=== PATIENT | female | born 1935 | race Caucasian/White ===

== ENCOUNTER 2017-01-10 17:43 | Emergency (ER) | payer MEDICARE ==
[~2017-01-10 17:43] MED LIST: AMLO5TAB22 PO; ASPI81 PO; ATEN50 PO; CLOP75 PO; FENO50TA PO; ISOS60 PO; LEVE500 PO; LISI-363 PO; MAGN400T19 PO; RANI150 PO; SIMV40TA PO; [UNRECOGNIZED DRUG - CODE] PO
[2017-01-10 17:53] VITALS: BP 174/78; PULSE 82; RESP 17; TEMP 98
[2017-01-10 18:09] VITALS: BP 170/72; PULSE 72; RESP 16; O2SAT 98
[2017-01-10] MEDS ORDERED: SODIUM CHLOR 0.9% 1000 ML INJ 1,000 ML IV ONE (18:28)
[2017-01-10] MEDS ORDERED: SODIUM CHLORIDE 0.9% FLUSH 10 ML FLUSH IVF PRN (18:30)
[2017-01-10 18:36] VITALS: BP_SYST 128; BP_SYST 143; BP_DIAS 61; BP_DIAS 64; RESP 16; RESP 18
[2017-01-10 18:47] VITALS: BP 162/72; PULSE 73; RESP 16; O2SAT 100
--- NOTE | 2017-01-10 18:48 | PD ---
HPI Chief Complaint: Cardiac Complaint Time Seen by Provider: 18:08 Travel History International Travel<30 days: No Contact w/Intl Traveler<30days: No Traveled to known affect area: No History of Present Illness HPI The patient is a 81-year-old female who presents to the emergency department for 2-3 weeks of dizziness and lightheadedness. The patient states her last 2-3 weeks she has had a few intermittent episodes of lightheadedness and dizziness, worse with standing upright and worse after taken her medications. The patient states she got up this morning and took her medications at approximately 8:30 AM including isosorbide, amlodipine, and lisinopril. The patient then developed dizziness upon standing upright with a near syncopal episode at approximately 9:30 AM. Patient states she fell to her knees, but did not lose consciousness. The patient sat there for several minutes prior to getting up and going to the chair which she took her blood pressure. When the patient took her blood pressure she states her systolic was 80 and diastolic was in the 40s. The patient does have a history of hypertension and coronary artery disease, has previous CABG and stent placement. The patient was being followed by her scrub wheel operator, Dr. Guzmán, who recently retired. She is currently looking for a new scrub wheel operator. The patient 's primary physician is Dr. Ankit Sharma. The patient also complains of some left- sided chest pressure for the last 3 days which is intermittent, nonradiating, occasionally associated with shortness of breath. She denies any exertional shortness of breath. The patient last had stents placed in 2011, states she had a cardiac catheterization in 2013 with no other stents placed. She denies any exertional shortness of breath. The patient is unsure for chest pressure is related to previous swelling to the left chest after lumpectomy and lymph node dissection for which she undergoes physical therapy. PFSH Past Medical History Hx Anticoagulant Therapy: Yes Cardiac Catheterization: Yes Cardiovascular Problems: Yes High Cholesterol: Yes Chest Pain: Yes Congestive Heart Failure: No Coronary Artery Disease: Yes Hypertension: Yes Neurologic: Yes Immunizations Current: Yes Influenza Vaccination: Yes ?: Not Past Surgical History Abdominal Surgery: Yes (SMALL INTESTINE RESECTION ) Appendectomy: Yes Cardiac Surgery: Yes (cabg 1998) Cholecystectomy: Yes Coronary Artery Bypass Graft: Yes (1998, 4 STENTS) Coronary Stent: Yes Genitourinary Surgery: Yes (hysterectomy) Hysterectomy: Yes Other Surgery: Yes (LEFT BREAST LUMPECTOMY) Social History Alcohol Use: No Tobacco Use: No Substance Use: No Allergies-Medications (Allergen,Severity, Reaction): Coded Allergies: Codeine (Verified Allergy, Severe, Itching, 01/10/17) Penicillin (Verified Allergy, Severe, SOB, 01/10/17) Reported Meds & Prescriptions Reported Meds & Active Scripts Active Keppra (Levetriacetam) 500 Mg Tab 500 Mg PO Q12 30 Days Reported Amlodipine Besylate 5 mg (Amlodipine Besylate) 5 Mg Tab 1 Tab PO DAILY Zantac (Ranitidine HCl) 150 Mg Tab 150 Mg PO BID Lisinopril 20 mg (Lisinopril) 20 Mg Tab 20 Mg PO DAILY Magnesium Oxide (Magnesium Oxide (mg Supplement)) 400 Mg Tab 400 Mg PO BID Fish Oil Burp-Less ([place]-3 Fatty Acids) 1,000 Mg Cap 1,000 Mg PO DAILY Tricor (Fenofibrate) 145 Mg Tab 145 Mg PO DAILY Imdur 60 Mg (Isosorbide Mononitrate) 60 Mg Tabcr 60 Mg PO HS Aspirin 81 Mg Tab 81 Mg PO DAILY Simvastatin 40 Mg Tab 20 Mg PO HS Plavix (Clopidogrel Bisulfate) 75 Mg Tab 75 Mg PO DAILY Tenormin 50 Mg Tab (Atenolol) 50 Mg Tab 100 Mg PO DAILY Review of Systems Except as stated in HPI: all other systems reviewed are Neg HENT: Positive: Lightheadedness Cardiovascular: Positive: Chest Pain or Discomfort, No: Diaphoresis, Dyspnea on exertion Respiratory: Positive: Shortness of Breath Gastrointestinal: No: Nausea, Vomiting, Abdominal Pain Musculoskeletal: Positive: Weakness, No: Edema Neurologic: Positive: Dizziness, No: Headache, Change in Mentation Physical Exam Narrative GENERAL: Awake, alert, pleasant 81-year-old female who appears her stated age and is in no acute respiratory distress. SKIN: Focused skin assessment warm/dry. HEAD: Atraumatic. Normocephalic. EYES: Pupils equal and round. No scleral icterus. No injection or drainage. ENT: No nasal bleeding or discharge. Mucous membranes pink and moist. NECK: Trachea midline. No JVD. CARDIOVASCULAR: Regular rate and rhythm. No murmur appreciated. Heart rate in the 70s. Well-healed midline surgical scar. Tenderness along the left sternal border which causes pain but does not reproduce the pressure. RESPIRATORY: No accessory muscle use. Clear to auscultation. Breath sounds equal bilaterally. GASTROINTESTINAL: Abdomen soft, non-tender, nondistended. No rebound tenderness. MUSCULOSKELETAL: No obvious deformities. No clubbing. No cyanosis. No edema. NEUROLOGICAL: Awake and alert. No obvious cranial nerve deficits. Motor grossly within normal limits. Normal speech. PSYCHIATRIC: Appropriate mood and affect; insight and judgment normal. Data Data Last Documented VS Vital Signs Date Time Temp Pulse Resp B/P Pulse Ox O2 Delivery O2 Flow Rate FiO2 01/10/17 18:36 76 16 143/64 80 18 128/61 01/10/17 18:09 98 Room Air 01/10/17 17:53 98.0 Orders Electrocardiogram (01/10/17 18:28) Complete Blood Count With Diff (01/10/17 18:28) Comprehensive Metabolic Panel (01/10/17 18:28) Magnesium (Mg) (01/10/17 18:28) Troponin I (01/10/17 18:28) Act Partial Throm Time (Ptt) (01/10/17 18:28) Prothrombin Time / Inr (Pt) (01/10/17 18:28) Chest, Single Ap (01/10/17 18:28) Ct Brain W/O Iv Contrast(Rout) (01/10/17 18:28) Ecg Monitoring (01/10/17 18:28) Iv Access Insert/Monitor (01/10/17 18:28) Oximetry (01/10/17 18:28) Sodium Chloride 0.9% Flush (Ns Flush) (01/10/17 18:30) Sodium Chlor 0.9% 1000 Ml Inj (Ns 1000 M (01/10/17 18:28) Orthostatic Vital Signs (01/10/17 18:28) MDM Medical Decision Making Medical Screen Exam Complete: Yes Emergency Medical Condition: Yes Medical Record Reviewed: Yes Interpretation(s) EKG reveals normal sinus rhythm with a rate of 72. Q wave noted in lead 3 with inverted T waves. Differential Diagnosis Differential diagnosis includes orthostatic hypotension, medication side effect , vasovagal syncope, neurogenic syncope, dehydration, electrolyte abnormality, acute coronary syndrome. Narrative Course IV was established, labs are drawn and sent, and the patient was placed on cardiac telemetry monitoring and continuous pulse oximetry monitoring. EKG was ordered and interpreted. Orthostatic vital signs were obtained, the patient did have a 20-30 point drop with standing upright with symptoms. Therefore, the patient was administered 500 cc of normal saline. CT the brain was obtained. The patient will be signed out to the oncoming physician, Dr. Hernandez, at 7 PM. Diagnosis Primary Impression: Near syncope Condition: Stable Luis Enrique Lucas MD Jan 10, 2017 18:48
--- NOTE | 2017-01-10 19:03 | RADRPT ---
EXAM DATE/TIME: 01/10/2017 18:52 [facility] COMPARISON: CT BRAIN W/O CONTRAST, September 23, 2014, 22:56. INDICATIONS : Dizziness. RADIATION DOSE: 30.14 CTDIvol (mGy) MEDICAL HISTORY : Carcinoma, breast. Cardiovascular disease Hypertension. SURGICAL HISTORY : CABG ENCOUNTER: Initial ACUITY: 1 day PAIN SCALE: 0/10 LOCATION: cranial TECHNIQUE: Multiple contiguous axial images were obtained of the head. Using automated exposure control and adj ustment of the mA and/or kV according to patient size, radiation dose was kept as low as reasonably a chievable to obtain optimal diagnostic quality images. DICOM format image data is available electro nically for review and comparison. FINDINGS: CEREBRUM: The ventricles are normal for age. No evidence of midline shift, mass lesion, hemorrhage or acute in farction. No extra-axial fluid collections are seen. POSTERIOR FOSSA: The cerebellum and brainstem are intact. The 4th ventricle is midline. The cerebellopontine angle i s unremarkable. EXTRACRANIAL: The visualized portion of the orbits is intact. SKULL: The calvaria is intact. No evidence of skull fracture. CONCLUSION: Normal examination for a patient of this age. No significant change has occurred. Rei Ramos MD on January 10, 2017 at 19:00 Board Certified Radiologist. This report was verified electronically.
--- NOTE | 2017-01-10 19:05 | RADRPT ---
EXAM DATE/TIME: 01/10/2017 18:32 [facility] COMPARISON: CHEST SINGLE AP, September 23, 2014, 22:37. INDICATIONS : Dizziness and lightheaded. Discomfort in chest. Shortness of breath. MEDICAL HISTORY : None. SURGICAL HISTORY : CABG. ENCOUNTER: Initial ACUITY: 3 weeks PAIN SCORE: 3/10 LOCATION: Bilateral chest FINDINGS: A single view of the chest demonstrates postoperative CABG. Tortuous aorta. No effusion. No pneumotho rax. CONCLUSION: 1. Postoperative CABG. No acute findings. Rei Ramos MD on January 10, 2017 at 19:03 Board Certified Radiologist. This report was verified electronically.
[2017-01-10 19:28] LABS: AUTOMATED NEUTROPHIL # 3.8 TH/MM3 (1.8-7.7); BASOPHIL # 0.1 TH/MM3 (0-0.2); BASOPHIL % 0.8 % (0.0-2.0); EOSINOPHIL # 0.1 TH/MM3 (0-0.4); HEMATOCRIT 34.1 % (35.0-46.0); HEMO FLAGS DIFF FINAL; LYMPH % 34.2 % (9.0-44.0); LYMPHOCYTE # 2.3 TH/MM3 (1.0-4.8); MEAN CELL VOLUME 90.2 FL (80.0-100.0); MEAN CORPUSCULAR HEMOGLOBIN 30.4 PG (27.0-34.0); MEAN CORPUSCULAR HGB CONC 33.7 % (32.0-36.0); MONO % 7.5 % (0.0-8.0); NEUT % 55.5 % (16.0-70.0); PLATELET COUNT 257 TH/MM3 (150-450); RED BLOOD COUNT 3.78 MIL/MM3 (4.00-5.30); WHITE BLOOD COUNT 6.9 TH/MM3 (4.0-11.0)
[2017-01-10 19:32] LABS: APTT (PATIENT) 23.6 SEC (24.3-30.1); INTERNATIONAL NORMALIZED RATIO 1.1 RATIO; PROTHROMBIN TIME - PATIENT 11.7 SEC (9.8-11.6)
[2017-01-10 19:39] LABS: ALT (GPT) 20 U/L (10-53); ANION GAP 9 MEQ/L (5-15); AST (GOT) 24 U/L (15-37); BICARBONATE 25.4 MEQ/L (21.0-32.0); BLOOD UREA NITROGEN 33 MG/DL (7-18); CHLORIDE 106 MEQ/L (98-107); GLOMERULAR FILTRATION RATE 35 ML/MIN (>89); MAGNESIUM 1.4 MG/DL (1.5-2.5); POTASSIUM 4.3 MEQ/L (3.5-5.1); SODIUM (NA) 140 MEQ/L (136-145)
[2017-01-10 19:44] VITALS: BP 189/82; PULSE 69; RESP 15; O2SAT 100
[2017-01-10 19:44] LABS: ALKALINE PHOSPHATASE 44 U/L (45-117); TOTAL BILIRUBIN ADULT 0.6 MG/DL (0.2-1.0)
[2017-01-10] MEDS ORDERED: ASPI1TAB91 PO (19:47)
[2017-01-10] MEDS ORDERED: FENO50TA PO (19:47)
[2017-01-10] MEDS ORDERED: MAG-84TA PO (19:47)
[2017-01-10] MEDS ORDERED: LISI-515 PO (19:47)
[2017-01-10] MEDS ORDERED: HYDR-3533 PO (19:47)
[2017-01-10] MEDS ORDERED: AMLO5TAB2 PO (19:47)
[2017-01-10] MEDS ORDERED: [UNRECOGNIZED DRUG - CODE] PO (19:47)
[2017-01-10] MEDS ORDERED: LORA-392 PO (19:47)
[2017-01-10] MEDS ORDERED: PLAV75TA29 PO (19:47)
[2017-01-10] MEDS ORDERED: ISOS60TA PO (19:47)
--- NOTE | 2017-01-10 20:52 | PD ---
Data Data Last Documented VS Vital Signs Date Time Temp Pulse Resp B/P Pulse Ox O2 Delivery O2 Flow Rate FiO2 01/10/17 21:12 71 16 192/78 72 183/82 75 199/80 01/10/17 19:44 100 Room Air 01/10/17 17:53 98.0 Orders Electrocardiogram (01/10/17 18:28) Complete Blood Count With Diff (01/10/17 18:28) Comprehensive Metabolic Panel (01/10/17 18:28) Magnesium (Mg) (01/10/17 18:28) Troponin I (01/10/17 18:28) Act Partial Throm Time (Ptt) (01/10/17 18:28) Prothrombin Time / Inr (Pt) (01/10/17 18:28) Chest, Single Ap (01/10/17 18:28) Ct Brain W/O Iv Contrast(Rout) (01/10/17 18:28) Ecg Monitoring (01/10/17 18:28) Iv Access Insert/Monitor (01/10/17 18:28) Oximetry (01/10/17 18:28) Sodium Chloride 0.9% Flush (Ns Flush) (01/10/17 18:30) Sodium Chlor 0.9% 1000 Ml Inj (Ns 1000 M (01/10/17 18:28) Orthostatic Vital Signs (01/10/17 18:28) Orthostatic Vital Signs (01/10/17 20:24) Troponin I (01/10/17 20:24) Labs Laboratory Tests Test 01/10/17 01/10/17 18:40 20:30 White Blood Count 6.9 TH/MM3 Red Blood Count 3.78 MIL/MM3 Hemoglobin 11.5 GM/DL Hematocrit 34.1 % Mean Corpuscular Volume 90.2 FL Mean Corpuscular Hemoglobin 30.4 PG Mean Corpuscular Hemoglobin 33.7 % Concent Red Cell Distribution Width 14.0 % Platelet Count 257 TH/MM3 Mean Platelet Volume 7.8 FL Neutrophils (%) (Auto) 55.5 % Lymphocytes (%) (Auto) 34.2 % Monocytes (%) (Auto) 7.5 % Eosinophils (%) (Auto) 2.0 % Basophils (%) (Auto) 0.8 % Neutrophils # (Auto) 3.8 TH/MM3 Lymphocytes # (Auto) 2.3 TH/MM3 Monocytes # (Auto) 0.5 TH/MM3 Eosinophils # (Auto) 0.1 TH/MM3 Basophils # (Auto) 0.1 TH/MM3 CBC Comment DIFF FINAL Differential Comment Prothrombin Time 11.7 SEC Prothromb Time International 1.1 RATIO Ratio Activated Partial 23.6 SEC Thromboplast Time Sodium Level 140 MEQ/L Potassium Level 4.3 MEQ/L Chloride Level 106 MEQ/L Carbon Dioxide Level 25.4 MEQ/L Anion Gap 9 MEQ/L Blood Urea Nitrogen 33 MG/DL Creatinine 1.46 MG/DL Estimat Glomerular Filtration 35 ML/MIN Rate Random Glucose 86 MG/DL Calcium Level 9.4 MG/DL Magnesium Level 1.4 MG/DL Total Bilirubin 0.6 MG/DL Aspartate Amino Transf 24 U/L (AST/SGOT) Alanine Aminotransferase 20 U/L (ALT/SGPT) Alkaline Phosphatase 44 U/L Troponin I LESS THAN 0.02 LESS THAN 0.02 NG/ML NG/ML Total Protein 6.7 GM/DL Albumin 3.7 GM/DL [facility] Medical Record Reviewed: Yes Supervised Visit with AI: No Narrative Course CBC & BMP Diagram 01/10/17 18:40 Troponin is less than 0.02 LFTs are normal Magnesium 1.4 INR 1.1 EKG reveals a sinus rhythm with normal axis and intervals and no ischemic injury pattern or preexcitation type pattern Patient was reassessed at 2030 was found resting comfortably. Orthostatic vital signs done at about the same time showed essentially no change in the mean arterial pressure with supine sitting and standing and the pulse change was also marginal. Relative hypertension in the ER at time of orthostatics evaluation noted. Pt is due for her evening Norvasc dose which will be taken at home. Patient has good follow-up with Dr. Palacios. The nature of the patient's chest complaints is somewhat indeterminate. The delta troponin is undetectable and follow up with cardiology as an outpatient is considered reasonable. The near-syncope type event this morning could be related to a prior ingestion of antihypertensives. Diagnosis Primary Impression: Hypomagnesemia Additional Impressions: Near syncope Orthostatic hypotension Referrals: Ankit Palacios MD 2 days Additional Instruction: PLEASE SKIP YOUR MORNING HIGH BLOOD PRESSURE MEDICATION UNLESS YOUR BLOOD PRESSURE IS GREATER THAN 160 ON THE TOP NUMBER OR 100 ON THE BOTTOM NUMBER. BE SURE TO SEE DR PALACIOS EARLY NEXT WEEK. PLEASE BE SURE TO RETURN TO THE ER RIGHT AWAY IF YOU DEVELOP NEW OR WORSENING CHEST PAIN OR SHORTNESS OF BREATH. Med/Other Pt SpecificInfo: Existing Med Changed Disposition: 01 DISCHARGE HOME Condition: Stable Kash Hernandez MD Jan 10, 2017 20:52
[2017-01-10 21:12] VITALS: BP_SYST 183; BP_SYST 192; BP_SYST 199; BP_DIAS 78; BP_DIAS 80; BP_DIAS 82; RESP 16
--- NOTE | 2017-01-11 17:27 | EKG ---
Date Performed: 01/10/2017 Time Performed: 18:30:29 PTAGE: 81 years EKG: Sinus rhythm NORMAL ECG Since PREVIOUS TRACING , no significant change noted PREVIOUS TRACIN09/23/2014 22.10 DOCTOR: Chilo Severino Interpretating Date/Time 01/11/2017 17:26:35
== END 2017-01-10 22:15 | disposition home or self-care (01) ==
LOC: NEPC 17:43
DX: E83.42 Hypomagnesemia (principal); R55 Syncope and collapse; R42 Dizziness and giddiness; R06.02 Shortness of breath; R53.1 Weakness; I95.1 Orthostatic hypotension; I10 Essential (primary) hypertension; I25.10 Atherosclerotic heart disease of native coronary artery without angina pectoris; E78.00 Pure hypercholesterolemia, unspecified
CPT/HCPCS: 70450; 71010; 80053; 83735; 84484; 85025; 85610; 85730; 93005; 99285; J7030

== ENCOUNTER 2018-04-22 10:05 | Inpatient (IN) ==
--- NOTE | 2018-04-22 10:58 | XR ---
EXAM DATE: 04/22/2018 10:54 AM EST AGE/SEX: 82 years / Female INDICATIONS: Evaluate for pneumonia,pneumothorax or communicable disease. CLINICAL DATA: This is the patient's subsequent encounter. Patient reports that signs and symptoms h ave been present for 1 day and indicates a pain score of 0/10. MEDICAL/SURGICAL HISTORY: Carcinoma, breast. Arthritis. Hypertension. TIA. Hypokalemia. Hypo magngnesemia. CABG. Cardiac stents. Left lumpectomy. Right carotid endarterectomy. COMPARISON: [facility] – [place], CHEST SINGLE AP, 01/10/2017. . FINDINGS: A single AP view of the chest demonstrates the lungs to be symmetrically aerated without evidence of mass, infiltrate or effusion. The cardiomediastinal contours are unremarkable. Degenerative changes are noted throughout the thoracolumbar spine. CONCLUSION: 1. No acute cardiopulmonary disease. 2. Degenerative changes are noted throughout the thoracolumbar spine. Electronically signed by: Virgilio Valero MD 04/22/2018 10:57 AM EST
[2018-04-22] MEDS ORDERED: Metoprolol Tartrate 25 MG Tablet PO ONE (11:00)
[2018-04-22] MEDS ORDERED: Sodium Chlor 0.9% Inj 500 ML IV.CONT ONE (11:00)
[2018-04-22] MEDS ORDERED: Chlorhexidine Gluconate 2% 1 Pack (2 Cloths) TOPICAL ONE (11:00)
--- NOTE | 2018-04-22 11:04 | P.HPUP ---
The Pre-Admit History and Physical Examination regarding the above named patient was reviewed (including, but not limited to, vital signs, heart, lungs, co-morbid conditions), and upon re-examination it is noted that: the patient's condition has not significantly changed since the last examination.
[2018-04-22 11:05] LABS: Baso # (Auto) 0.1 th/mm3 (0.0-0.2); Baso % (Auto) 0.6 % (0.0-2.0); Eos # (Auto) 0.1 th/mm3 (0.0-0.4); Eos % (Auto) 0.8 % (0.0-4.0); Hematocrit 38.9 % (35.0-46.0); Hemoglobin 13.2 gm/dL (11.6-15.3); Lymph % (Auto) 22.9 % (9.0-44.0); Mean Corpuscular HGB Conc 33.9 % (32.0-36.0); Mean Corpuscular Hemoglobin 30.9 pg (27.0-34.0); Mean Corpuscular Volume 91.1 fL (80.0-100.0); Mean Platelet Volume 7.8 fL (7.0-11.0); Mono # (Auto) 0.4 th/mm3 (0.0-0.9); Mono % (Auto) 4.8 % (0.0-8.0); Neut # (Auto) 6.3 th/mm3 (1.8-7.7); Neut % (Auto) 70.9 % (16.0-70.0); Platelet Count 252 th/mm3 (150-450); Red Blood Count 4.27 mil/mm3 (4.00-5.30); Red Cell Distribution Width 13.1 % (11.6-17.2); White Blood Count 8.9 th/mm3 (4.0-11.0)
[2018-04-22 11:17] LABS: Prothrombin Time 9.9 sec (9.8-11.6)
[2018-04-22 11:23] LABS: Potassium 3.9 meq/L (3.5-5.1)
[2018-04-22] MEDS ORDERED: Gelatin Size 100 Topical Foam ONE (11:25)
[2018-04-22] MEDS ORDERED: Heparin 10,000 UNITS/10 ML Vial (for IV use) ONE (11:25)
[2018-04-22] MEDS ORDERED: Protamine Sulfate Inj 50 MG/5 ML Vial ONE (11:25)
[2018-04-22] MEDS ORDERED: Thrombin Topical 20,000 UNIT Spray Kit TOPICAL ONE (11:26)
[2018-04-22] MEDS ORDERED: Heparin/NS PF Inj 500 ML ONE (11:26)
[2018-04-22] MEDS ORDERED: Phenylephrine/NS 1000 MCG/10ML Syringe IV.PUSH ONE (11:47)
[2018-04-22] MEDS ORDERED: Normosol-R pH 7.4 Inj 1,000 ML IV.CONT ONE (11:47)
[2018-04-22] MEDS ORDERED: Glycopyrrolate Inj 1 MG/5 ML Syringe IV.PUSH ONE (11:47)
[2018-04-22] MEDS ORDERED: Lidocaine PF 1% Inj 5 ML Syringe OTHER ONE (11:47)
[2018-04-22] MEDS ORDERED: Labetalol HCl Inj 100 MG/20 ML Vial IV.CONT ONE (11:47)
[2018-04-22] MEDS ORDERED: Neostigmine Inj 5 MG/5 ML Syringe IV.PUSH ONE (11:47)
[2018-04-22] MEDS ORDERED: Bisacodyl 10 MG Supp RECTAL PRN (13:52)
[2018-04-22] MEDS ORDERED: Morphine Inj 4 MG/ML Vial IV.PUSH PRN (13:52)
--- NOTE | 2018-04-22 13:52 | P.OP ---
Preoperative Diagnosis: Symptomatic left carotid artery stenosis Postoperative Diagnosis: Symptomatic left carotid artery stenosis Date of procedure: 04/22/18 Anesthesia: GETA Surgeon: Mikal Khan MD Estimated blood loss (mL): 50 Operation and Findings: Findings #1 80% stenosis of the left internal carotid artery. There was repaired using endarterectomy with pericardial patch angioplasty. We used an [place] shunt and our total clamp time was less than 1 minute. Description of procedure The patient was taken to the operating room placed supine in the OR table. After general trach anesthesia the patient was prepped and draped in the standard sterile fashion. Timeout was called with all members and you are in agreement. An incision was made anterior to the left sternocleidomastoid. Dissection was taken down through the subcutaneous tissues electrocautery. The carotid sheath was entered. The facial vein identified ligated and divided. The hypoglossal nerve ansa cervicalis and the vagus nerve were identified and protected throughout the whole procedure. The common carotid artery external carotid artery internal carotid artery and superior thyroid artery were dissected and encircled Silastic loop. Patient was heparinized. Proximal distal control obtained arteriotomy is created in the common carotid artery that extended into the internal carotid artery. The [place] shunt was placed to establish flow from the common carotid artery to the internal carotid artery. Endarterectomy was performed. Fine-tuning was also performed to remove all 5 degrees. The artery was repaired using a pericardial patch to cut to appropriate length and secured using a 6-0 Prolene suture in the running fashion. The shunt was removed all vessels were flushed and the suture line was completed. We established flow from the common carotid artery to the external carotid artery then into the internal carotid artery. Hemostasis achieved. #19 JAMAR drain was placed into the wound and brought through the skin using a different stab wound and secured using a nylon suture. The wound was closed in multiple layers using Vicryl suture followed by Monocryl suture. Sterile dressing was applied. Patient tolerated the procedure well she was awakened from anesthesia with her tongue midline and no neurological deficits. She was taken to the ICU for postop care.
[2018-04-22] MEDS ORDERED: fentaNYL Citrate Inj 100 MCG/2 ML Ampul ONE (14:43)
[2018-04-22] MEDS: Sod Chloride 0.9% Inj 1,000 ML IV.CONT SCH (14:50)
--- NOTE | 2018-04-22 16:13 | P.CONCC ---
History of Present Illness Service: Critical care medicine Consult date: 04/22/18 Requesting Physician: Mikal Khan Reason for Consult: Critical care medicine management Primary Care Provider: Ankit Sharma MD Chief Complaint: None History of Present Illness: This is a 82-year-old female. Admission 04/22/2018. Date of consultation 04/22/2018. Past medical history includes chronic benzodiazepine use, coronary disease status CABG and stents x4, history of right carotid enterectomy, gastroesophageal reflux disease, hypertension, hyperlipidemia. Patient presents today for a elective left carotid endarterectomy. Patient received 1100 cc crystalloid, EBL of 25 cc. Urine output 100 cc. Patient was transported postop late room 448 for evaluation. She is currently on a warming blanket. Review of Systems unobtainable due to mental status PMFSH - History History Provided By: Patient - Medical History Medical History: Medical History (Last Reviewed 04/22/18 @ 16:10 by Lior Bassett MD) Arthritis Breast cancer GERD (gastroesophageal reflux disease) History of TIAs Hypertension Hypokalemia Hypomagnesemia UTI (urinary tract infection) Wears dentures Wears glasses - Surgical History Surgical History: Surgical History (Last Reviewed 04/22/18 @ 16:11 by Lior Bassett MD) H/O heart artery stent H/O lumpectomy History of right-sided carotid endarterectomy S/P CABG x 4 - Family History Family History: Family History (Last Updated 04/22/18 @ 16:11 by Lior Bassett MD) Other Family history of heart disease - Social History I have reviewed the patient's Social History: Yes - Tobacco History Second Hand Smoke Exposure: Yes Tobacco Use In Past 30 Days: No Smoking Status: Former smoker Tobacco Type: Cigarettes - Alcohol History How Often Do You Have a Drink Containing Alcohol: Never - Substance Use History Substance History: No History of Abuse - Travel History Recent Travel in the [place] Within the Last 8 Weeks: No Recent Travel Out of the Country Within the Last 8 Weeks: No Medications and Allergies Active Medications: Active Medications Al Hydroxide/Mg Hydroxide (Milk Of Magndoug Liq) 30 ml PO Q12H PRN PRN Reason: Mild Constipation Amlodipine Besylate (Norvasc) 10 mg PO BID [facility]AVI Atenolol (Tenormin) 50 mg PO DAILY [facility] Bisacodyl (Dulcolax Supp) 10 mg RECTAL DAILY PRN PRN Reason: SEVERE CONSITIPATION Clopidogrel Bisulfate (Plavix) 75 mg PO DAILY [facility] Ezetimibe (Zetia) 10 mg PO DAILY [facility] Famotidine (Pepcid) 20 mg PO BID [facility] Fenofibrate (Tricor) 145 mg PO DAILY [facility] Furosemide (Lasix) 20 mg PO DAILY [facility] Heparin Sodium (Porcine) (Heparin Inj) 5,000 units SQ Q8H [facility] Lactated Ringer's (Lr 1000 Ml Inj) 1,000 mls @ 30 mls/hr IV.CONT .Q24H ONE Stop: 04/23/18 10:59 Last Infusion: 04/22/18 12:54 Dose: Infused Sodium Chloride (Ns Inj) 500 mls @ 30 mls/hr IV.CONT .[id number] ONE Stop: 04/23/18 03:39 Last Admin: 04/22/18 11:12 Dose: Not Given Sodium Chloride (Ns Inj) 1,000 mls @ 100 mls/hr IV.CONT .Q10H RAVI Last Admin: 04/22/18 14:50 Dose: 100 mls/hr Isosorbide Mononitrate (Imdur) 60 mg PO DAILY [facility] Lactulose (Lactulose Liq) 30 ml PO DAILY PRN PRN Reason: SEVERE CONSITIPATION Lisinopril (Prinivil) 20 mg PO DAILY [facility] Lorazepam (Ativan) 0.5 mg PO HS [facility] Metoprolol Succinate (Toprol Xl) 50 mg PO DAILY [facility] Morphine Sulfate (Morphine Inj) 2 mg IV.PUSH Q1H PRN PRN Reason: BREAKTHROUGH PAIN Last Admin: 04/22/18 15:21 Dose: 2 mg Senna/Docusate Sodium (Karen-Colace) 1 tab PO BID [facility] Sennosides (Senokot) 17.2 mg PO Q12H PRN PRN Reason: Moderate Constipation Sodium Chloride (Ns Flush) 2 ml IV.FLUSH PRN PRN PRN Reason: FLUSH AFTER USING IV ACCESS Allergies Allergy/AdvReac Type Severity Reaction Status Date / Time codeine Allergy Severe Itching Verified 04/22/18 10:27 penicillin G Allergy Severe SOB Verified 04/22/18 10:27 Home Medications Medication Instructions Recorded Confirmed Type amlodipine 10 mg PO BID 04/22/18 04/22/18 History aspirin [Adult Low Dose Aspirin] 81 mg PO DAILY 04/22/18 04/22/18 History atenolol 50 mg PO DAILY 04/22/18 04/22/18 History clopidogrel 75 mg PO DAILY 04/22/18 04/22/18 History clopidogrel [Plavix] 75 mg PO DAILY 04/22/18 04/22/18 History ezetimibe 10 mg PO DAILY 04/22/18 04/22/18 History fenofibrate nanocrystallized 145 mg PO DAILY 04/22/18 04/22/18 History furosemide 20 mg PO DAILY 04/22/18 04/22/18 History hydrocodone-acetaminophen 1 tab PO Q4-6H PRN 04/22/18 04/22/18 History isosorbide mononitrate 60 mg PO DAILY 04/22/18 04/22/18 History lisinopril 20 mg PO DAILY 04/22/18 04/22/18 History lorazepam [Ativan] 0.5 mg PO HS 04/22/18 04/22/18 History metoprolol succinate 50 mg PO DAILY 04/22/18 04/22/18 History Physical Exam Vital signs: Vital Signs 04/22/18 10:55 04/22/18 15:01 04/22/18 15:41 Temperature 97.5 F L 93.8 F L Pulse Rate 58 L 47 L 49 L Respiratory Rate 18 10 L 14 Blood Pressure 150/74 H 139/60 112/55 L Pulse Oximetry 99 98 04/22/18 15:43 Temperature Pulse Rate Respiratory Rate 16 Blood Pressure Pulse Oximetry Intake & Output 04/21/18 04/22/18 04/22/18 18:59 06:59 18:59 Intake Total 2099 / 2099 Output Total 125 / 125 Balance 1974 Weight 56.3 kg Intake: IV 1000 / 1000 LR 1000 mL Inj 1,000 ML @ 30 1000 / 1000 mls/hr IV.CONT .Q24H ONE Rx#: [id number] Anesthesia Amount 1100 / 1100 Output: Estimated Blood Loss 25 / 25 Urine Amount (Catheter) 100 / 100 Indwelling Temp Sensing 100 / 100 Catheter Other: Weight On Admission 56.3 kg - Constitutional no acute distress - Routine HEENT Exam Head: Present: normocephalic, atraumatic Eye: Present: EOMI, PERRL ENT: Present: mucous membranes moist - Routine Neck Exam Present: supple Comments: GTN left internal jugular region neck. Sutures in place without erythema. - Routine Respiratory Exam Present: CTA bilaterally. Absent: accessory muscle use - Routine Cardiovascular Exam Present: RRR, S1, S2 - Routine Abdominal Exam Present: soft, normoactive bowel sounds - Routine Exam Patient deferred: external exam, groin exam, perineal exam - Routine Extremities Exam Absent: cyanosis, clubbing, edema - Routine Skin Exam Present: intact - Routine Neurological Exam Present: alert, oriented X3, CN II-XII intact - Detailed Neurological Exam: Coma Scale Eye Opening: Spontaneous Verbal Response: Confused Motor Response: Obey commands [place] Coma Scale Total: 14 - Routine Psychiatric Exam Present: unable to assess - Urinary Catheter Management Indwelling Temp Sensing Catheter Cath placed during this visit: yes Reason for continuing: Hourly intake/output Insertion date: 04/22/18 Insertion time: 12:15 Septic Shock Reassessment Septic shock perfusion: reassessment completed Assessment and Plan - Assessment and Plan Plan: Neuro/Psych: Chronic benzodiazepine use Continue lorazepam 0.5 mg at night for medication CV: Postoperative day #0 left carotid endarterectomy History of right Essential hypertension Coronary disease status post CABG x4 Hyperlipidemia Continue amlodipine 10 mg twice daily, atenolol 50 mg daily and isosorbide mononitrate 60 mg daily Continue lisinopril 20 mg p.o. daily. Continue Lasix 20 mg p.o. daily. Patient is on metoprolol succinate 50 mg daily as well. Continue fenofibrate 145 mg daily and ezetimibe 10 mg daily for dyslipidemia T and clopidogrel 75 mg p.o. daily Resp: Nasal cannula to maintain saturations greater than equal 92% Incentive spirometry while awake GI: Clear liquid diet. Patient is on ranitidine 150 milligrams twice daily for GI prophylaxis at home. Currently on famotidine 20 mg twice daily : Straight catheterization as needed Endo: Sliding scale insulin if clinically indicated to maintain euglycemia Renal: Creatinine was 1.3 on admission. Monitor urine output Accurate I's and O's Heme: CBC for a.m. 16. ID: Monitor for signs and symptomatology infection MSK: PT evaluate and treat FEN: Replace electrolytes as clinically indicated Access -Utilize peripheral IV. Central line if indicated Prophylaxis -GI -famotidine -DVT heparin subcu Level 2 consult
[2018-04-22] MEDS ORDERED: HYDROmorphone PF Inj 1 MG/ML Ampul IV.PUSH PRN (16:14)
--- NOTE | 2018-04-22 20:38 | ECG ---
Date Performed: 04/22/2018 Time Performed: 10:29:27 PTAGE: 82 years EKG: SINUS BRADYCARDIA NONSPECIFIC T-WAVE ABNORMALITY Compared to previous tracing, sinus rate i s slower BORDERLINE ECG PREVIOUS TRACING : 01/10/2017 18.30 DOCTOR: Ervin Estrada Interpretating Date/Time 04/22/2018 20:37:47
[2018-04-22] MEDS: LORazepam 0.5 MG Tablet PO SCH (21:00)
[2018-04-22] MEDS: Famotidine 20 MG Tablet PO SCH (21:14)
[2018-04-22] MEDS: Senna/Docusate Sodium 8.6/50 MG Tablet PO SCH (21:14)
[2018-04-22] MEDS: amLODIPine 10 MG Tablet PO SCH (21:14)
[2018-04-23] MEDS: LORazepam 0.5 MG Tablet PO SCH ×2 (01:29→01:39)
[2018-04-23] MEDS: Sod Chloride 0.9% Inj 1,000 ML IV.CONT SCH ×2 (01:32→17:35)
[2018-04-23 04:48] LABS: Hematocrit 35.9 % (35.0-46.0); Hemoglobin 11.8 gm/dL (11.6-15.3); Mean Corpuscular Hemoglobin 30.4 pg (27.0-34.0); Mean Corpuscular Volume 92.2 fL (80.0-100.0); Mean Platelet Volume 7.9 fL (7.0-11.0); Platelet Count 177 th/mm3 (150-450); Red Blood Count 3.89 mil/mm3 (4.00-5.30); Red Cell Distribution Width 13.2 % (11.6-17.2); White Blood Count 9.2 th/mm3 (4.0-11.0)
[2018-04-23 05:01] LABS: Calcium 8.2 mg/dL (8.5-10.1); Carbon Dioxide 19.2 meq/L (21.0-32.0)
[2018-04-23] MEDS: Senna/Docusate Sodium 8.6/50 MG Tablet PO SCH (08:16)
[2018-04-23] MEDS: Famotidine 20 MG Tablet PO SCH (08:16)
[2018-04-23] MEDS: amLODIPine 10 MG Tablet PO SCH (08:21)
[2018-04-23] MEDS ORDERED: Isosorbide Mononitrate 60 MG ER 24HR Tablet (Imdur) PO SCH (09:00)
[2018-04-23] MEDS ORDERED: Atenolol 50 MG Tablet PO SCH (09:00)
[2018-04-23] MEDS ORDERED: Ezetimibe 10 MG Tablet PO SCH (09:00)
[2018-04-23] MEDS ORDERED: Furosemide 20 MG Tablet PO SCH (09:00)
[2018-04-23] MEDS ORDERED: Lisinopril 20 MG Tablet PO SCH (09:00)
[2018-04-23] MEDS ORDERED: Fenofibrate 145 MG Tablet PO SCH (09:00)
--- NOTE | 2018-04-23 09:13 | P.PNCC ---
Subjective Subjective Remarks/Hospital Course: This is a 82-year-old female. Admission 04/22/2018. Date of consultation 04/22/2018. Past medical history includes chronic benzodiazepine use, coronary disease status CABG and stents x4, history of right carotid enterectomy, gastroesophageal reflux disease, hypertension, hyperlipidemia. Patient presents today for a elective left carotid endarterectomy. Patient received 1100 cc crystalloid, EBL of 25 cc. Urine output 100 cc. Patient was transported postop late room 448 for evaluation. She is currently on a warming blanket. Subjective 04/24: Afebrile. Resting in bed in no acute distress. JAMAR in place. Surgical site is clean dry and intact. No complaints. Objective Vital Signs / I&O: Vital Signs 04/22/18 10:55 04/22/18 15:01 04/22/18 15:41 Temperature 97.5 F L 93.8 F L Pulse Rate 58 L 47 L 49 L Respiratory Rate 18 10 L 14 Blood Pressure 150/74 H 139/60 112/55 L Pulse Oximetry 99 98 04/22/18 15:43 04/22/18 16:59 04/22/18 17:20 Temperature 97.8 F Pulse Rate 50 L 52 L Respiratory Rate 16 12 Blood Pressure 111/50 L 112/54 L Pulse Oximetry 98 04/22/18 18:12 04/22/18 19:00 04/22/18 20:00 Temperature 98.1 F Pulse Rate 50 L 51 L 52 L Respiratory Rate 14 18 18 Blood Pressure 125/63 122/51 L 124/58 L Pulse Oximetry 96 04/22/18 21:00 04/22/18 21:48 04/22/18 22:00 Temperature Pulse Rate 53 L 52 L Respiratory Rate Blood Pressure 142/60 H 134/60 Pulse Oximetry 97 04/22/18 23:00 04/23/18 00:00 04/23/18 01:00 Temperature 98.3 F Pulse Rate 59 L 56 L 61 Respiratory Rate 18 Blood Pressure 134/60 143/65 H 141/66 H Pulse Oximetry 04/23/18 02:00 04/23/18 03:00 04/23/18 04:00 Temperature 98.3 F Pulse Rate 59 L 58 L 60 Respiratory Rate Blood Pressure 145/63 H 139/65 132/64 Pulse Oximetry 04/23/18 05:00 04/23/18 06:00 04/23/18 08:45 Temperature Pulse Rate 62 59 L Respiratory Rate Blood Pressure 146/51 H 142/60 H Pulse Oximetry 94 L Intake & Output 04/22/18 04/23/18 04/23/18 18:59 06:59 18:59 Intake Total 2170 / 2170 1924 / 1924 Output Total 265 / 265 965 / 965 Balance 1905 / 1905 959 / 959 Weight 56.3 kg 57.5 kg Intake: IV 1000 / 1000 1444 / 1444 LR 1000 mL Inj 1,000 ML @ 30 1000 / 1000 mls/hr IV.CONT .Q24H ONE Rx#: [id number] NS Inj 1,000 ML @ 100 mls/hr IV 1444 / 1444 .CONT .Q10H RAVI Rx#:[id number] Oral 70 / 70 480 / 480 Anesthesia Amount 1100 / 1100 Output: Emesis 50 / 50 Estimated Blood Loss 25 / 25 Urine Amount (Catheter) 230 / 230 900 / 900 Indwelling Temp Sensing 230 / 230 900 / 900 Catheter Wound Drainage Left Neck Other: # Bowel Movements 0 Weight On Admission 56.3 kg Result Diagrams: 04/23/18 03:55 04/23/18 03:55 Imaging: Chest X-Ray 04/22/18 00:00 CONCLUSION: 1. No acute cardiopulmonary disease. 2. Degenerative changes are noted throughout the thoracolumbar spine. Objective Remarks: GENERAL: This is an 82-year-old female resting in bed in no acute distress on nasal cannula SKIN: Warm and dry. HEAD: Atraumatic. Normocephalic. EYES: Pupils equal and round. No scleral icterus. No injection or drainage. ENT: No nasal bleeding or discharge. Mucous membranes pink and moist. NECK: Trachea midline. No JVD. Left carotid injection site is clean dry and intact JAMAR with serosanguineous drainage. CARDIOVASCULAR: Regular rate and rhythm. RESPIRATORY: No accessory muscle use. Clear to auscultation. Breath sounds equal bilaterally. GASTROINTESTINAL: Abdomen soft, non-tender, nondistended. Hepatic and splenic margins not palpable. MUSCULOSKELETAL: Extremities without clubbing, cyanosis, or edema. No obvious deformities. NEUROLOGICAL: Awake and alert. No obvious cranial nerve deficits. Motor grossly within normal limits. Five out of 5 muscle strength in the arms and legs. Normal speech. PSYCHIATRIC: Appropriate mood and affect; insight and judgment normal. Assessment and Plan - Assessment and Plan Plan: Neuro/Psych: Chronic benzodiazepine use Continue lorazepam 0.5 mg at night for medication CV: Postoperative day #1 left carotid endarterectomy History of right Essential hypertension Coronary disease status post CABG x4 Hyperlipidemia Continue amlodipine 10 mg twice daily, atenolol 50 mg daily and isosorbide mononitrate 60 mg daily Continue lisinopril 20 mg p.o. daily. Continue Lasix 20 mg p.o. daily. Patient is on metoprolol succinate 50 mg daily as well. Continue fenofibrate 145 mg daily and ezetimibe 10 mg daily for dyslipidemia Continue clopidogrel 75 mg p.o. daily Resp: Nasal cannula to maintain saturations greater than equal 92% Incentive spirometry while awake GI: Clear liquid diet. Patient is on ranitidine 150 milligrams twice daily for GI prophylaxis at home. Currently on famotidine 20 mg twice daily : Straight catheterization as needed Endo: Sliding scale insulin if clinically indicated to maintain euglycemia Renal: Creatinine was 1.3 on admission. Monitor urine output Accurate I's and O's Heme: CBC for a.m. 04/23. ID: Monitor for signs and symptomatology infection MSK: PT evaluate and treat FEN: Replace electrolytes as clinically indicated Access -Utilize peripheral IV. Central line if indicated Prophylaxis -GI -famotidine -DVT heparin subcu Level 2 consult
--- NOTE | 2018-04-23 12:25 | P.DS ---
Discharge Summary - Admission Date 04/22/18 10:05 - Admission Diagnosis (1) Carotid artery stenosis (2) Carotid artery stenosis - Discharge Diagnosis (1) Carotid artery stenosis Status: Acute - Summary Brief History from admission: 82-year-old female with a past medical history of symptomatic left carotid stenosis was admitted for left carotid artery endarterectomy. Procedure: Left carotid artery endarterectomy Significant Findings: Abnormal Lab Results 04/23/18 04/23/18 03:55 03:55 WBC 9.2 RBC 3.89 L Hgb 11.8 Hct 35.9 MCV 92.2 MCH 30.4 MCHC 33.0 RDW 13.2 Plt Count 177 MPV 7.9 Sodium 142 Potassium 4.0 Chloride 114 H Carbon Dioxide 19.2 L Anion Gap 9 BUN 26 H Creatinine 0.87 Estimated GFR 63 L Random Glucose 93 Calcium 8.2 L D Hospital Course: 82-year-old female who was admitted for elective left carotid artery endarterectomy. The procedure went uneventfully. She was observed in the ICU overnight. She has no neurological deficits. She was started on diet and she tolerated very well. A drain had minimal output. Her neurological exam showed slight droop on the left corner of her mouth that is probably due to retraction. No neurological deficit identified and physical exam. Her neck was supple with no hematoma. The JAMAR drain was discontinued the Conley catheter was also discontinued. She was discharged home in stable condition. - Discharge Instructions Any questions or concerns: Call [facility] [phone] Discharge Plan - Discharge Disposition Patient Disposition: 01 Discharge Home - Discharge Condition Condition: Good - Discharge Order Discharge Orders: Discharge Order (Routine); Ordered 04/23/18 Ordered By: Mikal Khan - Physicians Team Primary Care Provider: Ankit Sharma Attending Provider: Mikal Khan Other Providers: Lior Bassett MD - Rxs /Orders / Referrals /Forms Prescriptions: Continue amlodipine 10 mg Tablet 10 mg PO BID aspirin [Adult Low Dose Aspirin] 81 mg Tablet,Delayed Release (Dr/Ec) 81 mg PO DAILY atenolol 50 mg Tablet 50 mg PO DAILY clopidogrel 75 mg Tablet 75 mg PO DAILY clopidogrel [Plavix] 75 mg Tablet 75 mg PO DAILY ezetimibe 10 mg Tablet 10 mg PO DAILY fenofibrate nanocrystallized 145 mg Tablet 145 mg PO DAILY furosemide 20 mg Tablet 20 mg PO DAILY hydrocodone-acetaminophen 5-325 mg Tablet 1 tab PO Q4-6H PRN (Reason: Acute Pain) isosorbide mononitrate 60 mg Tablet Extended Release 24 Hr 60 mg PO DAILY lisinopril 20 mg Tablet 20 mg PO DAILY lorazepam [Ativan] 0.5 mg Tablet 0.5 mg PO HS metoprolol succinate 50 mg Tablet Extended Release 24 Hr 50 mg PO DAILY Referrals: Ankit Sharma MD [Primary Care Provider] - See Instructions - Discharge Instructions Patient Printed Instructions: Carotid Endarterectomy (DC)
--- NOTE | 2018-04-23 13:59 | XR ---
EXAM DATE: 04/23/2018 1:24 PM EST AGE/SEX: 82 years / Female INDICATIONS: Short of breath CLINICAL DATA: This is the patient's subsequent encounter. Patient reports that signs and symptoms h ave been present for 2 days and indicates a pain score of Nonresponsive. MEDICAL/SURGICAL HISTORY: Carcinoma, breast. Hypertension. Transient ischemic attack. Carotid endarterectomy. CABG. Coronary artery stent. COMPARISON: C, CHEST 1V SINGLE AP, 04/22/2018. . FINDINGS: Sternal wires previous bypass are noted. The heart and pulmonary vascularity are normal. . The portio n of the bony skeleton visualized is unremarkable. CONCLUSION: Negative for acute process. There is no congestive failure. Electronically signed by: Ric Casillas MD 04/23/2018 1:58 PM EST
[2018-04-23] MEDS ORDERED: Heparin - SQ 10,000 UNITS/ML Vial SQ SCH (14:00)
[2018-04-23 17:31] VITALS: BP 131/66; PULSE 63; RESP 16; TEMP 98; O2SAT 93
== END 2018-04-23 18:05 | disposition home or self-care (01) | DRG 39 ==
LOC: HSDI 10:05 → HCVI 15:10
PROVIDERS: ADMIT Surgery; ATTEND Surgery
CPT/HCPCS: 71010; 71045; 80048; 83520; 83880; 85025; 85027; 85610; 85730; 86850; 86900; 86901; 93005; 94150; 94640; 94650; 94664; 94667; J1170; J1644; J1940; J2250; J2270; J2370; J2405; J2704; J2710; J2720; J3010; J3370; J7030; J7120